=== PATIENT | male | born 1960 | race Caucasian/White ===

== ENCOUNTER 2019-12-05 04:38 | Emergency (ER) | payer MEDICARE, MEDICAID ==
[~2019-12-05] VITALS: Ht 175.3 cm; Wt 119.1 kg
[~2019-12-05 04:38] MED LIST: AMLO5TAB4 PO; ASPI325T80 PO; HYDR-3240 PO; LEVO25TA2 PO; MESA400C PO; MULT-518 PO; PARO10TA56; PARO20TA4 PO
--- NOTE | 2019-12-05 04:59 | NUR ---
pt sitting up on gurney, monitors applied, call light within reach. awaiting erp for eval
[2019-12-05] MEDS ORDERED: METH750T87 PO (05:00)
[2019-12-05] MEDS ORDERED: ACET325T14 PO (05:00)
[2019-12-05] MEDS ORDERED: WARF-36 PO (05:00)
[2019-12-05 05:46] VITALS: BP 132/81
--- NOTE | 2019-12-05 05:47 | NUR ---
pt resting on gursan francisco, monitors in place, call light within reach. awaiting xray and lab results
[2019-12-05 06:00] LABS: BASOPHILS # (AUTO) 0.03 x10^3/uL (0-0.1); BASOPHILS % (AUTO) 0 % (0-1); EOSINOPHILS # (AUTO) 0.17 x10^3/uL (0-0.4); EOSINOPHILS % (AUTO) 3 % (1-7); LYMPHOCYTES # (AUTO) 1.17 x10^3/uL (1-3.4); LYMPHOCYTES % (AUTO) 18 % (22-44); MD NO; MEAN CORPUSCULAR HGB CONC 32.8 g/dL (33.2-36.2); MEAN CORPUSCULAR VOLUME 85.3 fL (81-97); MEAN PLATELET VOLUME 7.4 fL (7.4-10.4); MONOCYTES # (AUTO) 0.47 x10^3/uL (0.2-0.8); MONOCYTES % (AUTO) 7 % (2-9); NEUTROPHILS # (AUTO) 4.53 x10^3/uL (1.8-6.8); NEUTROPHILS % (AUTO) 71 % (42-75); PLATELET COUNT 444 x10^3/uL (130-400); RED BLOOD COUNT 4.35 x10^6/uL (4.38-5.82); RED CELL DISTRIBUTION WIDTH 17.9 % (9.4-14.8)
[2019-12-05 06:05] LABS: INTERNATIONAL NORMALIZED RATIO 0.99 (0.93-1.1); PROTHROMBIN TIME 10.5 Seconds (9.6-11.5)
[2019-12-05 06:08] LABS: ALANINE AMINOTRANSFERASE 18 U/L (12-78); ALBUMIN 3.5 g/dL (3.4-5.0); ANION GAP 3 mmol/L (5-15); CALCIUM 9.3 mg/dL (8.5-10.1); CHLORIDE 107 mmol/L (98-107); CREATININE 0.84 mg/dL (0.7-1.3)
[2019-12-05 06:12] LABS: ALKALINE PHOSPHATASE 100 U/L (45-117); BILIRUBIN,TOTAL 0.6 mg/dL (0.2-1.0); TOTAL PROTEIN 7.7 g/dL (6.4-8.2); TROPONIN I < 0.015 ng/mL (0.000-0.045)
[2019-12-05] MEDS ORDERED: OXYcodone/APAP 5/325MG TABLET PO ONE (07:00)
[2019-12-05] MEDS ORDERED: Enoxaparin 1 mg/kg protocol SQ ONE (07:00)
--- NOTE | 2019-12-05 07:00 | NUR ---
REPORT GIVEN TO VEENA HARRISON
--- NOTE | 2019-12-05 07:04 | NUR ---
REPORT FROM VEENA BEE. ASSUMING PRIMARY CARE OF PT.
--- NOTE | 2019-12-05 07:11 | NUR ---
RN CALLED PHARMACY TO CALCULATE LOVENOX INJECTION.
[2019-12-05] MEDS ORDERED: ENOXAPARIN 120MG/0.8ML SQ ONE (07:15)
--- NOTE | 2019-12-05 07:26 | NUR ---
PT MEDICATED PER EMAR. PT DC HOME IN A STABLE CONDITION. PIV WAS REMOVED WITH TIP INTACT. DC INSTRUCTIONS WERE DISCUSSED WITH PT. PT VERBALIZED UNDERSTANDING. NO FURTHER QUESTIONS OR CONCERNS WERE EXPRESSED AT THAT TIME. PT AMBULATED WITH RN TO DC DESK. STEADY GAIT.
== END 2019-12-05 07:28 | disposition home or self-care (01) ==
LOC: ED 06:03
DX: D64.9 Anemia, unspecified (principal); R06.00 Dyspnea, unspecified; M54.9 Dorsalgia, unspecified; Z79.01 Long term (current) use of anticoagulants; I10 Essential (primary) hypertension; Z86.718 Personal history of other venous thrombosis and embolism
CPT/HCPCS: 36415; 71046; 80053; 83880; 84484; 85025; 85610; 93005; 96372; 99285; J1650

== ENCOUNTER 2021-03-25 15:14 | Emergency (ER) | payer MEDICARE, MEDICAID ==
[~2021-03-25] VITALS: Ht 175.3 cm; Wt 128.0 kg
[2021-03-25 15:21] VITALS: BP 137/68
== END 2021-03-25 22:11 | disposition home or self-care (01) ==
LOC: ED 22:05
DX: R06.00 Dyspnea, unspecified (principal); R07.89 Other chest pain; R06.02 Shortness of breath

== ENCOUNTER 2021-03-29 14:00 | Emergency (ER) | payer MEDICARE, MEDICAID ==
[~2021-03-29 14:00] MED LIST changes: +ACET325T14 PO; +HYDR-2214 PO; -HYDR-3240 PO; +METH750T87 PO; +WARF-36 PO
--- NOTE | 2021-03-29 16:13 | NUR ---
TRIAGE TECH: NIL FOR VITALS
--- NOTE | 2021-03-29 17:06 | NUR ---
TRIAGE TECH: NIL X 3
[2021-03-30] MEDS ORDERED: ESCI10TA10 PO (13:42)
== END 2021-03-29 17:36 | disposition left against medical advice (07) ==
LOC: ED 14:30
DX: R07.89 Other chest pain (principal); M79.621 Pain in right upper arm; Z53.21 Procedure and treatment not carried out due to patient leaving prior to being seen by health care provider

== ENCOUNTER 2021-03-30 06:03 | Observation (INO) | payer MEDICARE, MEDICAID ==
[~2021-03-30] VITALS: Ht 175.3 cm; Wt 126.3 kg
--- NOTE | 2021-03-30 06:49 | NUR ---
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
--- NOTE | 2021-03-30 07:07 | NUR ---
THIS IS A 60 YEAR OLD MALE WHO C/O CP AND LEFT ARM PAIN INTERMITTENT SINCE YESTERDAY SHARP IN NATURE ALONG WITH SOB. REPORTS FINISHED ABX FOR PNA THAT WAS DX 10 DAYS AGO. "MY CAT SCAN SHOWED THE PNA WAS GONE." PT PLACED ON TOWEL SORTER SINUS, CONTINOUS SP02 AND CYCLE VS.
[2021-03-30] MEDS ORDERED: SODIUM CHLORIDE FLUSH 10ML SYR IVF ONE (07:30)
[2021-03-30 07:47] LABS: BASOPHILS % (AUTO) 1 % (0-1); EOSINOPHILS % (AUTO) 8 % (1-7); LYMPHOCYTES % (AUTO) 24 % (22-44); MEAN CORPUSCULAR HEMOGLOBIN 29.1 pg (27.5-34.5); MEAN CORPUSCULAR HGB CONC 33.6 g/dL (33.2-36.2); MEAN PLATELET VOLUME 7.5 fL (7.4-10.4); MONOCYTES % (AUTO) 8 % (2-9); NEUTROPHILS % (AUTO) 60 % (42-75); PLATELET COUNT 297 x10^3/uL (130-400); RED BLOOD COUNT 4.68 x10^6/uL (4.38-5.82); RED CELL DISTRIBUTION WIDTH 13.6 % (9.4-14.8)
[2021-03-30 07:56] LABS: ALBUMIN 3.6 g/dL (3.4-5.0); ANION GAP 6 mmol/L (5-15); CHLORIDE 108 mmol/L (98-107)
[2021-03-30 08:02] LABS: ALANINE AMINOTRANSFERASE 32 U/L (12-78); ALKALINE PHOSPHATASE 89 U/L (45-117); BILIRUBIN,TOTAL 1.2 mg/dL (0.2-1.0); CREATININE 0.92 mg/dL (0.7-1.3); TOTAL PROTEIN 7.7 g/dL (6.4-8.2); TROPONIN I < 0.015 ng/mL (0.000-0.045)
[2021-03-30 08:08] LABS: INTERNATIONAL NORMALIZED RATIO 1.02 (0.93-1.1); PROTHROMBIN TIME 10.9 Seconds (9.6-11.5)
[2021-03-30] MEDS ORDERED: MORPHINE SULFATE 4 MG/ML, 1ML ONE ×3 (08:16→15:52)
[2021-03-30] MEDS: MORPHINE SULFATE 4 MG/ML, 1ML IVPush PRN ×2 (08:19→11:19)
--- NOTE | 2021-03-30 08:31 | NUR ---
MEDICATED PER ORDERS, PT STATES PAIN IS NOW 3/10
--- NOTE | 2021-03-30 09:40 | NUR ---
PT SLEEPING RESP EVEN AND UNLABORED
[2021-03-30] MEDS ORDERED: SODIUM CHLORIDE FLUSH 10ML SYR IVF PRN (11:00)
--- NOTE | 2021-03-30 12:14 | NUR ---
PT STATES PAIN IS BETTER, VERBALIZED NO NEEDS AT THIS TIME.
[2021-03-30] MEDS ORDERED: ONDANSETRON 2MG/ML, 2ML IVPush PRN (12:30)
[2021-03-30] MEDS ORDERED: POLYETHYLENE GLYCOL 17 GM PACKET PO PRN (12:30)
[2021-03-30] MEDS ORDERED: ENALAPRILAT 1.25 MG/ML, 2ML IVPush PRN (12:30)
[2021-03-30] MEDS ORDERED: ACETAMINOPHEN 325 MG TABLET PO PRN (12:30)
[2021-03-30] MEDS ORDERED: MELATONIN 5 MG TABLET PO PRN (12:30)
--- NOTE | 2021-03-30 12:35 | NUR ---
PT WILL BE HOLDING IN OUR ED. ORDERED HOSPITAL BED AND MEAL.
[2021-03-30 12:48] LABS: TROPONIN I < 0.015 ng/mL (0.000-0.045)
[2021-03-30] MEDS ORDERED: HEPARIN 5,000 UNITS/ML, 1ML ONE (13:18)
[2021-03-30] MEDS ORDERED: HEPARIN 25,000 UNITS/250ML PMX 250 ML ONE (13:19)
[2021-03-30] MEDS ORDERED: HEPARIN 5,000 UNITS/ML, 1ML IV ONE (13:30)
[2021-03-30] MEDS: HEPARIN 25,000 UNITS/250ML PMX 250 ML IV PRN (13:31)
--- NOTE | 2021-03-30 13:41 | NUR ---
IV HEPARIN STARTED, PT EATING MEAL, ORDERED LAB FOR 193. PT STATES HE TAKES LEXAPRO FOR DEPRESSION, TOOK THIS AM
[2021-03-30] MEDS ORDERED: ESCI10TA10 PO (13:42)
--- NOTE | 2021-03-30 14:03 | NUR ---
PT PLACED ON HOSPITAL BED, PT VERBALIZED NO NEEDS AT THIS TIME.
[2021-03-30] MEDS: morphine SULFATE 10 MG/ML, 1ML IVPush PRN ×2 (15:55→21:05)
--- NOTE | 2021-03-30 15:57 | NUR ---
MEDICATED FOR LEFT SIDED CHEST PAIN AND ARM PAIN.
--- NOTE | 2021-03-30 16:10 | NUR ---
PT SLEEPING RESP EVEN AND UNLABORED.
--- NOTE | 2021-03-30 17:49 | NUR ---
report to ebenezer benton, plan of care discussed
[2021-03-30 18:03] VITALS: BP 134/78
[2021-03-30 19:37] LABS: TROPONIN I < 0.015 ng/mL (0.000-0.045)
[2021-03-30] MEDS: HEPARIN 5,000 UNITS/ML, 1ML IV PRN (19:50)
[2021-03-31 01:01] VITALS: BP 111/74
[2021-03-31] MEDS: morphine SULFATE 10 MG/ML, 1ML IVPush PRN ×2 (02:09→05:36)
[2021-03-31 02:10] LABS: BASOPHILS % (AUTO) 1 % (0-1); EOSINOPHILS % (AUTO) 8 % (1-7); LYMPHOCYTES % (AUTO) 35 % (22-44); MEAN CORPUSCULAR HEMOGLOBIN 29.4 pg (27.5-34.5); MEAN CORPUSCULAR HGB CONC 33.9 g/dL (33.2-36.2); MEAN PLATELET VOLUME 7.6 fL (7.4-10.4); MONOCYTES % (AUTO) 6 % (2-9); NEUTROPHILS % (AUTO) 50 % (42-75); PLATELET COUNT 270 x10^3/uL (130-400); RED BLOOD COUNT 4.64 x10^6/uL (4.38-5.82); RED CELL DISTRIBUTION WIDTH 14.2 % (9.4-14.8)
[2021-03-31 02:19] LABS: ALANINE AMINOTRANSFERASE 29 U/L (12-78); ALBUMIN 3.2 g/dL (3.4-5.0); ANION GAP 5 mmol/L (5-15); CALCIUM 8.8 mg/dL (8.5-10.1); CHLORIDE 107 mmol/L (98-107); CREATININE 0.87 mg/dL (0.7-1.3)
[2021-03-31 02:22] LABS: ALKALINE PHOSPHATASE 82 U/L (45-117); BILIRUBIN,TOTAL 1.2 mg/dL (0.2-1.0)
[2021-03-31] MEDS: HEPARIN 5,000 UNITS/ML, 1ML IV PRN (02:25)
[2021-03-31 07:13] VITALS: BP 118/73
[2021-03-31] MEDS ORDERED: REGADENOSON 0.4 MG/5 ML SYRINGE ONE (08:07)
[2021-03-31] MEDS: HEPARIN 25,000 UNITS/250ML PMX 250 ML IV PRN (08:36)
== END 2021-03-31 16:05 | disposition home or self-care (01) ==
LOC: ED 06:10 → EDIP 10:52 → INTOOBSV 10:52 → 5SO 17:56
PROVIDERS: ADMIT Family Medicine; ATTEND Hospitalist
DX: R07.89 Other chest pain (principal); I20.0 Unstable angina; I10 Essential (primary) hypertension; E03.9 Hypothyroidism, unspecified; E66.9 Obesity, unspecified; F32.9 Major depressive disorder, single episode, unspecified; Z87.891 Personal history of nicotine dependence; Z79.899 Other long term (current) drug therapy; Z79.01 Long term (current) use of anticoagulants; Z86.711 Personal history of pulmonary embolism; Z86.718 Personal history of other venous thrombosis and embolism; Z87.01 Personal history of pneumonia (recurrent)
CPT/HCPCS: 36415; 71045; 78452; 80053; 83735; 84100; 84484; 85025; 85520; 85610; 93005; 93017; 96365; 96366; 96375; 96376; 99285; A9502; G0378; J1644; J2270; J2785